=== PATIENT | male | born 1970 | race Two or more races ===

== ENCOUNTER 2019-05-08 23:45 | Emergency (ER) | payer SELFPAY ==
[~2019-05-08] VITALS: Ht 167.6 cm; Wt 90.7 kg
[2019-05-09 00:01] VITALS: BP 119/98
[2019-05-09] MEDS ORDERED: GELATIN SPONGE,ABSORBABLE 1 SPONGE SPONGE TP ONE (00:20)
--- NOTE | 2019-05-09 00:37 | NUR ---
Patient discharged to home in stable condition. Written and verbal after care instructions given. Patient verbalizes understanding of instruction. Pt ambulatory with a steady gait
== END 2019-05-09 00:38 | disposition home or self-care (01) ==
LOC: ER 23:50
DX: S61.301A Unspecified open wound of left index finger with damage to nail, initial encounter (principal); X58.XXXA Exposure to other specified factors, initial encounter; Y93.89 Activity, other specified; Y92.89 Other specified places as the place of occurrence of the external cause; Y99.0 Civilian activity done for income or pay
CPT/HCPCS: 99283; A6403